=== PATIENT | female | born 1985 | race African-American/Black ===

== ENCOUNTER 2018-05-29 13:35 | Outpatient (CLI) | payer OTHER ==
--- NOTE | 2018-05-29 15:11 | ULT ---
OB ULTRASOUND: HISTORY: anatomy. FINDINGS: A single live intrauterine gestation is seen with measurements corresponding to an estimated gestatio nal age of 21 weeks 3 days and YOANNA at 10/06/2017. The estimated weight measures 409 gm or 14 oun ho. measurements are as follows: BPD 5.23 cm, 22 weeks 0 days HC 18.61 cm, 21 weeks 0 days AC 16.86 cm, 22 weeks 0 days FL 3.34 cm, 20 weeks 4 days heart rate measures 155 b.p.m. Placenta is anteriorly located without evidence of placenta pre via. The CARLOS measures 16.86 cm. Three-vessel cord, cord insertion, kidneys, bladder, stomach, 4-chamber heart, lateral ventricl es, cerebellum, spine, lips/nose, upper and lower extremities were visualized. No anomalies ar e seen. IMPRESSION: Single live intrauterine of 21 weeks 3 days, estimated gestational age and estimated date o f delivery at 10/26/2018. POS: ASHOK
== END 2018-05-29 13:36 | disposition home or self-care (01) ==
LOC: BICULT 13:35
PROVIDERS: ATTEND Nurse Practitioner
DX: O09.92 Supervision of high risk pregnancy, unspecified, second trimester (principal); Z3A.21 21 weeks gestation of pregnancy
CPT/HCPCS: 76805

== ENCOUNTER 2018-09-24 11:29 | Inpatient (IN) | payer MEDICAID, OTHER, SELFPAY ==
[2018-09-24] MEDS ORDERED: Ondansetron PF 4 MG/2 ML Vial IVP PRN ×3 (12:04→18:09)
[2018-09-24] MEDS ORDERED: Lactated Ringer's 1,000 ML IV SCH (12:04)
[2018-09-24] MEDS ORDERED: Butorphanol Tartrate 1 MG/ML VIAL SLOW IVP PRN (12:04)
[2018-09-24 12:26] LABS: Mean Corpuscular HGB CONC 33.6 g/dL (32.0-36.0); Mean Corpuscular Volume 86.5 fL (78.0-98.0); Mean Platelet Volume 7.8 fL (7.4-10.4); Platelet Count 202 thou/uL (130-400); RBC Distribution Width 13.1 % (11.5-14.5); Red Blood Cell (RBC) Count 4.47 mill/uL (4.20-5.40); White Blood Cell (WBC) Count 8.5 thou/uL (4.8-10.8)
[2018-09-24 12:40] VITALS: BMI 27.8
[2018-09-24] MEDS ORDERED: CEFAZOLIN 2 GM in Premix Bag 1 BAG IVPB SCH (13:00)
[2018-09-24] MEDS ORDERED: Bicitra 30 ML UDCUP PO SCH (13:00)
[2018-09-24 13:05] LABS: Syphilis Antibody Nonreactive (Nonreactive); Syphilis Antibody Index 0.02 S/CO (<1.00 Non-Reactive)
[2018-09-24 13:13] LABS: HBSAg Index 0.31 S/CO (0-0.99); Hep B Surf Ag Non-Reactive S/CO (NonReactive)
[2018-09-24] MEDS ORDERED: MORPHINE 5 MG/10 ML PF VIAL ONE (13:55)
[2018-09-24] MEDS ORDERED: PHENYLEPHRINE-NS 100 MCG/ML 10 ML SYRINGE ONE (14:05)
[2018-09-24] MEDS ORDERED: Ondansetron PF 4 MG/2 ML Vial ONE ×2 (14:10)
[2018-09-24] MEDS ORDERED: Oxytocin 10 UNITS/ML VIAL ONE ×2 (14:20→14:48)
[2018-09-24] MEDS ORDERED: Dexamethasone 4 mg/ml Vial ONE (14:24)
[2018-09-24] MEDS ORDERED: Ketorolac Tromethamine 30 MG/ML VIAL ONE (14:24)
--- NOTE | 2018-09-24 14:57 | PDOC.OPDEL ---
OB Operative/Delivery Note Delivery Dr/Surgeon: Dr. Man Assist: Dr. Trimble Pre-Delivery Diagnosis: scheduled section Procedure/Post Delivery Dx: repeat low transverse CS Weeks gestation: 39 (39w1d) Anesthesia: spinal - Findings A Sex: male - 1 min: 9 - 5 min: 9 - Additional Findings/Plan Placenta delivered: manual removal findings: low transverse hysterotomy without extension Compilations/Other Findings: Delivery Note Preoperative Diagnosis: 1)Term intrauterine 2)Previous 3)Breech presentation Postoperative Diagnosis: 1)Term intrauterine 2)Previous 3)Breech presentation Anesthesia: spinal Indications: The patient is a 33 year old female at 39.1 weeks gestation who presents for a repeat scheduled . Procedure in Detail: After risks, benefits, and alternatives were explained to the patient, she gave informed consent. Pre-operative antibiotics included Cefazolin 2 gram IV. The patient was taken to the operating room and spinal anesthesia was initiated. She was placed in the supine position with a left tilt and prepped and draped in usual sterile fashion. A Pfannenstiel incision was made with a scalpel and carried down to the level of the fascia which was sharply nicked. The fascial cut was extended bilaterally with Strong scissors. The inferior and superior edges of the cut fascial edges were elevated with Dana clamps and the underlying rectus muscles were sharply and bluntly dissected free. The recti were divided digitally and retracted manually. The peritoneum was entered bluntly and retracted manually. Gerson-O retractor was placed. Bladder flap was created with Metzenbaum scissors. A low transverse score was made with the scalpel and the uterus was entered in the midline bluntly. Clear fluid was seen. The hysterotomy was extended manually. The infant was noted to be breech and was easily delivered in the usual fashion. Mouth and nares were bulb suctioned. Cord clamped and cut after one minute delayed cord clamping and grossly normal male infant was handed to waiting nurse. Cord blood was obtained. Placenta was manually extracted, found to be intact with 3 vessel cord and discarded. The uterus was externalized and the endometrium was curetted with a dry lap. The uterus was closed with a running locking 0-Vicryl suture followed by a running non-locking 0-Vicryl imbricating suture. Following this hemostasis was noted. Seprafilm was placed over the uterus. The abdomen was irrigated with saline and suctioned free of clots. The uterus was internalized and the hysterotomy was again noted to be hemostatic. The peritoneum was closed with a running, non-locking 3-0 vicryl suture. The fascia was closed with a running non-locking 0-PDS suture. The subcutaneous tissue was irrigated and there were no bleeders. The subcutaneous tissue was approximated with interrupted 3-0 Vicryl suture. The skin was approximated with lam and a pressure dressing was placed. All counts were correct. The patient tolerated the procedure well and was taken to the recovery room in stable condition. Time/Date of Delivery: 1419 on 09/24/18 Quantitative blood loss pending Complications: None Specimens: Cord blood sent to lab for blood type Findings: Grossly normal male infant with apgars of 9 and 9 at 1 and 5 minutes respectively. Grossly normal placenta with 3 vessel cord discarded. Drains: Silva to gravity draining clear urine Post delivery plan: routine recovery
[2018-09-24] MEDS ORDERED: Promethazine HCl 25 MG SUPP PR PRN (15:03)
[2018-09-24] MEDS ORDERED: Naloxone HCl 0.4 mg/ml Vial IV PRN (15:03)
[2018-09-24] MEDS ORDERED: Ondansetron HCl/PF 4 MG/2 ML Vial IVP PRN (15:03)
[2018-09-24] MEDS ORDERED: HYDROmorphone 2 MG/ML VIAL SLOW IVP PRN (15:03)
[2018-09-24] MEDS ORDERED: Eucerin (Mineral Oil/Petrolatum,White) 30 gm Jar TOP PRN (15:03)
[2018-09-24] MEDS ORDERED: Naloxone HCl 0.4 mg/ml Vial IVP PRN ×2 (15:03)
[2018-09-24] MEDS ORDERED: Meperidine HCl/PF 25 MG/ML VIAL SLOW IVP PRN (15:03)
[2018-09-24] MEDS ORDERED: L&D-Morphine 4 MG/ML VIAL SLOW IVP PRN (15:03)
[2018-09-24] MEDS ORDERED: Promethazine HCl 25 MG/ML VIAL IM PRN (15:03)
[2018-09-24] MEDS ORDERED: diphenhydrAMINE 50 MG/ML VIAL IVP PRN (15:03)
[2018-09-24] MEDS ORDERED: Communication Order-Pharmacy FS SCH (15:15)
[2018-09-24] MEDS ORDERED: Ketorolac Tromethamine 30 MG/ML VIAL IVP SCH (15:15)
[2018-09-24] MEDS ORDERED: Meperidine HCl/PF 25 MG/ML VIAL ONE (16:49)
[2018-09-24] MEDS ORDERED: Methylergonovine 0.2 MG/ML VIAL ONE (16:54)
[2018-09-24] MEDS ORDERED: Carboprost 250 MCG/ML AMP ONE (16:55)
[2018-09-24] MEDS ORDERED: Morphine 4 MG/ML VIAL ONE (17:50)
[2018-09-24] MEDS ORDERED: Carboprost 250 MCG/ML AMP IM SCH (18:00)
[2018-09-24] MEDS ORDERED: Methylergonovine 0.2 MG/ML VIAL IM SCH (18:00)
[2018-09-24] MEDS ORDERED: Bisacodyl 10 MG SUPP PR PRN (18:09)
[2018-09-24] MEDS ORDERED: NS / Oxytocin 40 units/1000ml 1,000 ML IV SCH (18:09)
[2018-09-24] MEDS ORDERED: Lanolin Ointment 7 GM TUBE TOP PRN (18:09)
[2018-09-24] MEDS: Ketorolac Tromethamine 30 MG/ML VIAL IVP PRN (20:08)
[2018-09-24] MEDS: Docusate Calcium (SURFAK) 240 MG CAP PO SCH (21:37)
[2018-09-24] MEDS: diphenhydrAMINE 25 MG CAP PO PRN (23:57)
[2018-09-25] MEDS ORDERED: Meperidine HCl/PF 25 MG/ML VIAL IM PRN (03:15)
[2018-09-25] MEDS: Simethicone Chewable 80 MG TAB PO PRN ×4 (04:16→21:10)
[2018-09-25] MEDS: HYDROcodone/Acetaminophen 5/325 mg Tablet PO PRN ×5 (04:16→21:10)
[2018-09-25] MEDS: Ketorolac Tromethamine 30 MG/ML VIAL IVP PRN (05:34)
[2018-09-25 06:58] LABS: Hemoglobin 10.4 g/dL (12.0-16.0); Mean Corpuscular HGB CONC 33.3 g/dL (32.0-36.0); Mean Corpuscular Hemoglobin 29.2 pg (27.0-31.0); Mean Corpuscular Volume 87.7 fL (78.0-98.0); Mean Platelet Volume 7.9 fL (7.4-10.4); Platelet Count 169 thou/uL (130-400); Red Blood Cell (RBC) Count 3.55 mill/uL (4.20-5.40); White Blood Cell (WBC) Count 12.9 thou/uL (4.8-10.8)
[2018-09-25] MEDS: Docusate Calcium (SURFAK) 240 MG CAP PO SCH ×2 (08:52→21:10)
[2018-09-25] MEDS: Prenatal Vitamin 1 TAB PO SCH (08:52)
[2018-09-25] MEDS: Ferrous Sulfate 325 MG TAB PO SCH ×2 (08:54→18:05)
[2018-09-25] MEDS: diphenhydrAMINE 25 MG CAP PO PRN (08:58)
[2018-09-25] MEDS ORDERED: Adacel (T-DAP) 0.5 ML SYRINGE IM ONE (09:00)
[2018-09-25] MEDS: Ibuprofen 800 MG TAB PO SCH ×2 (13:43→21:10)
[2018-09-25] MEDS ORDERED: Ibuprofen 800 MG TAB PO SCH (22:00)
[2018-09-26] MEDS: HYDROcodone/Acetaminophen 5/325 mg Tablet PO PRN ×4 (01:58→18:08)
[2018-09-26] MEDS: Ibuprofen 800 MG TAB PO SCH ×2 (05:25→13:21)
[2018-09-26] MEDS: Docusate Calcium (SURFAK) 240 MG CAP PO SCH (09:43)
[2018-09-26] MEDS: Prenatal Vitamin 1 TAB PO SCH (09:43)
[2018-09-26] MEDS: Ferrous Sulfate 325 MG TAB PO SCH ×2 (09:44→17:32)
[2018-09-26] MEDS: Simethicone Chewable 80 MG TAB PO PRN (10:16)
[2018-09-26 13:21] VITALS: BP 125/77; TEMP 98.2
== END 2018-09-26 18:46 | disposition home or self-care (01) | DRG 787 ==
LOC: L&D 11:29 → 3SW 19:26
PROVIDERS: ADMIT Family Medicine; ATTEND Family Medicine
PROC: 10D00Z1 Extraction of Products of Conception, Low, Open Approach (ICD-10-PCS; principal; 2018-09-24)
PROC: 3E0P05Z Introduction of Adhesion Barrier into Female Reproductive, Open Approach (ICD-10-PCS; 2018-09-24)
DX: O34.211 Maternal care for low transverse scar from previous cesarean delivery (principal); O98.52 Other viral diseases complicating childbirth; O32.8XX0 Maternal care for other malpresentation of fetus, not applicable or unspecified; Z3A.39 39 weeks gestation of pregnancy; Z37.0 Single live birth; B00.9 Herpesviral infection, unspecified
CPT/HCPCS: 36415; 51702; 85027; 86780; 86850; 86900; 86901; 87340; J1100; J1885; J2175; J2210; J2270; J2310; J2405; J2590; J3490; Q0163